=== PATIENT | female | born 1940 | race Caucasian/White ===

== ENCOUNTER 2018-11-07 11:09 | Inpatient (IN) | payer MEDICARE ==
[~2018-11-07] VITALS: Ht 157.5 cm; Wt 105.0 kg
--- NOTE | 2018-11-07 12:01 | NUR ---
pt to ed for productive cough x1 week. accompanied by concerned son and dtr. connected to all monitors. vss. call light Conmio reach. pt tamera from [facility] at this time. report to [facility].
--- NOTE | 2018-11-07 12:18 | NUR ---
ASSUMED CARE OF PT AT THIS TIME FROM PAM RODRÍGUEZ. RECEIVED REPORT. KAMI PRATHER AT BEDSIDE FOR EVALUATION. PT REPORTS "I'M HAVING TO USE MY HOME OXYGEN, 2L, ALL THE TIME AND USUALLY I DON'T HAVE TO USE IT THIS MUCH, BUT I DO USE 2L." VSS. ALL MONITORS ON. DENIES CP AND ANY PAIN OR NEED TO USE RESTROOM. CALL LIGHT IN REACH. FALL PRECAUTIONS IN PLACE. AWAITING RESULTS.
--- NOTE | 2018-11-07 12:21 | NUR ---
PT UNABLE TO RECALL HOME MEDICATIONS, "I TAKE A LOT OF THINGS BUT I DON'T KNOW WHAT THEY ARE." FAMILY UNABLE TO ASSIST WITH MEDICATION LIST EITHER, KAMI PRATHER AT BEDSIDE, AWARE UNABLE TO OBTAIN HOME MEDICATION LIST.
[2018-11-07 12:35] LABS: BASOPHILS # (AUTO) 0.07 x10^3/uL (0-0.1); BASOPHILS % (AUTO) 1 % (0-1); EOSINOPHILS # (AUTO) 0.35 x10^3/uL (0-0.4); EOSINOPHILS % (AUTO) 4 % (1-7); LYMPHOCYTES # (AUTO) 1.41 x10^3/uL (1-3.4); LYMPHOCYTES % (AUTO) 15 % (22-44); MD NO; MEAN CORPUSCULAR HEMOGLOBIN 30.1 pg (27.0-34.8); MEAN CORPUSCULAR HGB CONC 33.3 g/dL (32.4-35.8); MEAN CORPUSCULAR VOLUME 90.4 fL (80-100); MEAN PLATELET VOLUME 7.5 fL (7.4-10.4); MONOCYTES # (AUTO) 0.69 x10^3/uL (0.2-0.8); MONOCYTES % (AUTO) 7 % (2-9); NEUTROPHILS % (AUTO) 74 % (42-75); PLATELET COUNT 317 x10^3/uL (130-400); RED BLOOD COUNT 4.66 x10^6/uL (3.82-5.3); RED CELL DISTRIBUTION WIDTH 14.5 % (9.6-15.2)
[2018-11-07 12:42] LABS: ALBUMIN 2.9 g/dL (3.4-5.0); ANION GAP 5 mmol/L (5-15); CALCIUM 8.7 mg/dL (8.5-10.1); CHLORIDE 108 mmol/L (98-107); CREATININE 1.14 mg/dL (0.55-1.02)
[2018-11-07 12:46] LABS: TROPONIN I < 0.015 ng/mL (0.000-0.045)
--- NOTE | 2018-11-07 13:02 | NUR ---
PT UP FOR RECHECK
--- NOTE | 2018-11-07 13:10 | NUR ---
PT RESTING IN POSITION OF COMFORT, DOZING INTERMITTENTLY, VSS. RESP REGULAR, EVEN, UNLABORED. PULSE OX 97% 2L NC O2. DENIES ANY PAIN, CP, NEED TO USE RESTROOM. CALL LIGHT IN REACH. FALL PRECAUTIONS IN PLACE. AWAITING RECHECK FROM ERP
--- NOTE | 2018-11-07 13:47 | NUR ---
DR. SAUCEDA AT BEDSIDE FOR EVALUATION, PT AWAITING CT.
--- NOTE | 2018-11-07 14:24 | NUR ---
PT AMBULATED IN HALLS WITH INFORMATION AND REFERRAL DIRECTOR AND OXYGEN TO TEST PT O2 WITH AMBULATION. PT PULSE OX REMAINED AT 97% ON 3L NC O2, HR RATE 90-110. PT REPORTED "FEELING TIRED" AFTER APPROXIMATELY 15 FT OF AMBULATION IN [place]. DISCUSSED WITH DR. SAUCEDA, AWARE. PT BACK TO BED, RESTING IN POSITION OF COMFORT. DENIES NEED TO USE RESTROOM, AWARE UA SAMPLE NEEDED. DISCUSSED UA WITH DR. SAUCEDA, AWARE PT DENIES URGE AT THIS TIME. TO RECHECK PT. CALL LIGHT IN REACH. VSS. FAMILY AT BEDSIDE. FALL PRECAUTIONS IN PLACE.
--- NOTE | 2018-11-07 14:39 | NUR ---
PT AMBULATED TO RESTROOM WITH O2 WITH SLOW BUT STEADY GAIT. MILD WORK OF BREATHING WITH AMBULATION. RESTING BACK ON GURNEY IN POSITION OF COMFORT. RESP REGULAR, EVEN, UNLABORED. PULSE OX 97% 2L NC WHILE RESTING. CALL LIGHT IN REACH. VSS. DR. SAUCEDA AT BEDSIDE FOR RECHECK. DISCUSSING POC, TO BE ADMITTED TO HOSPITAL, PT AND FAMILY AGREE TO POC.
--- NOTE | 2018-11-07 14:55 | NUR ---
PT REQUESTING PAIN MEDICATION, ADMITTING PROVIDER AT BEDSIDE FOR EVALUATION, AWAITING ORDERS.
[2018-11-07 14:57] LABS: MICROSCOPIC NOT IND
[2018-11-07] MEDS ORDERED: ONDANSETRON 2MG/ML, 2ML IVPush PRN (15:00)
[2018-11-07] MEDS ORDERED: ONDANSETRON ODT 4 MG PO PRN (15:00)
[2018-11-07 15:04] LABS: CULTURE INDICATED? NO
--- NOTE | 2018-11-07 15:05 | NUR ---
YONI RN AT BEDSIDE FOR IV START FOR ADMISSION TO HOSPITAL
--- NOTE | 2018-11-07 15:20 | NUR ---
REPORT AND CARE TO BREAK MARCOS BROOKS
--- NOTE | 2018-11-07 15:40 | NUR ---
REPORT BACK FROM BREAK RN. CARE ASSUMED. TO MEDICATE PT FOR PAIN. PT AMBULATED TO RESTROOM WITH STEADY GAIT WITH O2 AT THIS TIME. VSS. CALL LIGHT IN REACH. FALL PRECAUTIONS IN PLACE. RESTING IN POSITION OF COMFORT. AWAITING ROOM ON FLOOR.
[2018-11-07 15:48] LABS: TROPONIN I < 0.015 ng/mL (0.000-0.045)
[2018-11-07] MEDS ORDERED: ACETAMINOPHEN 325 MG TABLET ONE (16:01)
[2018-11-07] MEDS ORDERED: HEPARIN 5,000 UNITS/ML, 1ML ONE (16:01)
[2018-11-07] MEDS: ACETAMINOPHEN 325 MG TABLET PO PRN ×2 (16:07→22:49)
[2018-11-07] MEDS: SODIUM CHLORIDE 0.9% 1,000 ML IV SCH (16:08)
[2018-11-07] MEDS: HEPARIN 5,000 UNITS/ML, 1ML SQ SCH (16:10)
--- NOTE | 2018-11-07 16:12 | NUR ---
PT MEDICATED NOTED PER ORDER FOR 06/29 CHRONIC BACK PAIN. CONTINUE AWAITING ROOM ON FLOOR. AMBULATED TO RESTROOM WITH STEADY GAIT WITH O2, RESTING BACK IN POSITION OF COMFORT. WATCHING TV. CALL LIGHT IN REACH. FALL PRECAUTIONS IN PLACE. REMAINS A&OX4.
[2018-11-07] MEDS: INSULIN LISPRO 100 UNITS/ML, PEN SQ-INSULIN SCH ×2 (16:55→21:00)
--- NOTE | 2018-11-07 16:56 | NUR ---
FSBS CHECKED PER ORDER, RESULT 106, NO INSULIN ADMINISTERED PER SLIDING SCALE ORDERS. PT RESTING COMFORTABLY. MEDTELE HOLD AT THIS TIME, NO ROOM AVAILABLE ON FLOOR. WATCHING TV. VSS. DENIES NEED TO USE RESTROOM.
--- NOTE | 2018-11-07 16:59 | NUR ---
RT AT BEDSIDE FOR EVALUATION
[2018-11-07] MEDS ORDERED: ALBUTEROL/IPRATROPIUM 2.5MG/0.5MG, 3 ML ONE (17:06)
--- NOTE | 2018-11-07 17:14 | NUR ---
RT REMAINS AT BEDSIDE. VSS. REMAINS SR ON MONITOR. CALL LIGHT IN REACH. DENIES NEED TO USE RESTROOM.
[2018-11-07] MEDS: ALBUTEROL/IPRATROPIUM 2.5MG/0.5MG, 3 ML NPPB SCH ×2 (17:20→23:20)
--- NOTE | 2018-11-07 17:58 | NUR ---
BEDSIDE REPORT AND CARE TO JOSÉ MIGUEL RODRÍGUEZ AT THIS TIME.
--- NOTE | 2018-11-07 18:10 | NUR ---
BEDSIDE REPORT RECEIVED FROM MARCOS ASCENCIO. PT SITTING UP IN [facility] NOTED. PT FINISHED 100% OF MEAL TRAY AND DENIES FURTHER NEEDS/PAIN MANAGEMENT. BP/SPO2/ECG MONITORING IN PLACE. SPO2 >90% W/3L O2 BY NC. NSR ON MONITOR. PT SPEAKING IN FULL SENTENCES WO DIFFICULTY. NO RESPIRATORY DISTRESS NOTED.
--- NOTE | 2018-11-07 19:15 | NUR ---
PT AMBULATED USING OWN CANE TO RESTROOM. PT ON 3L BY [place] FOR ACTIVITY. PT REPORTS BACK PAIN, DENIES CP/SOB/INCREASED WOB WITH ACTIVITY. PT REMAINS TALKATIVE THROUGHOUT. SPO2 UPON RETURN TO ROOM >90%. PT PLACED ON 2L BY NJ WHILE RESTING IN BED. CONTINUE TO AWAIT ROOM ASSIGNMENT.
--- NOTE | 2018-11-07 19:34 | NUR ---
REPORT TO MARCOS UMANZOR. PT PREPARED FOR TRANSPORT
[2018-11-07 20:11] VITALS: BP 119/79
[2018-11-07] MEDS ORDERED: ATORVASTATIN 40 MG TABLET PO SCH (21:00)
[2018-11-07] MEDS: BUDESONIDE 0.5 MG/2 ML INHA NPPB SCH (21:00)
[2018-11-07 21:11] LABS: TROPONIN I < 0.015 ng/mL (0.000-0.045)
[2018-11-07] MEDS: IBUPROFEN 200 MG TABLET PO PRN (22:30)
[2018-11-08 00:24] VITALS: BP 109/69
[2018-11-08] MEDS ORDERED: IBUPROFEN 200 MG TABLET ONE (00:33)
[2018-11-08] MEDS: IBUPROFEN 200 MG TABLET PO PRN (00:35)
[2018-11-08] MEDS: ACETAMINOPHEN 325 MG TABLET PO PRN ×2 (04:41→09:56)
[2018-11-08 05:07] LABS: BASOPHILS # (AUTO) 0.12 x10^3/uL (0-0.1); BASOPHILS % (AUTO) 1 % (0-1); EOSINOPHILS # (AUTO) 0.42 x10^3/uL (0-0.4); EOSINOPHILS % (AUTO) 5 % (1-7); LYMPHOCYTES # (AUTO) 2.02 x10^3/uL (1-3.4); LYMPHOCYTES % (AUTO) 22 % (22-44); MD NO; MEAN CORPUSCULAR HEMOGLOBIN 29.9 pg (27.0-34.8); MEAN CORPUSCULAR HGB CONC 32.8 g/dL (32.4-35.8); MEAN CORPUSCULAR VOLUME 91.2 fL (80-100); MEAN PLATELET VOLUME 7.7 fL (7.4-10.4); MONOCYTES # (AUTO) 0.87 x10^3/uL (0.2-0.8); MONOCYTES % (AUTO) 9 % (2-9); NEUTROPHILS # (AUTO) 5.89 x10^3/uL (1.8-6.8); NEUTROPHILS % (AUTO) 63 % (42-75); PLATELET COUNT 280 x10^3/uL (130-400); RED BLOOD COUNT 4.43 x10^6/uL (3.82-5.3); RED CELL DISTRIBUTION WIDTH 14.6 % (9.6-15.2)
[2018-11-08 05:09] LABS: ANION GAP 6 mmol/L (5-15); CALCIUM 8.7 mg/dL (8.5-10.1); CHLORIDE 107 mmol/L (98-107); CREATININE 1.35 mg/dL (0.55-1.02)
[2018-11-08 05:32] LABS: HEMOGLOBIN A1C 6.2 % (4.2-6.3)
[2018-11-08] MEDS ORDERED: ASPIRIN 81 MG TABLET EC PO SCH (06:00)
[2018-11-08] MEDS: INSULIN LISPRO 100 UNITS/ML, PEN SQ-INSULIN SCH ×3 (07:00→16:11)
[2018-11-08 07:09] VITALS: BP 130/67
[2018-11-08] MEDS: BUDESONIDE 0.5 MG/2 ML INHA NPPB SCH (07:25)
[2018-11-08] MEDS: ALBUTEROL/IPRATROPIUM 2.5MG/0.5MG, 3 ML NPPB SCH ×3 (07:25→14:18)
[2018-11-08] MEDS ORDERED: SENNA/DOCUSATE TABLET PO SCH (09:00)
[2018-11-08] MEDS: HEPARIN 5,000 UNITS/ML, 1ML SQ SCH ×3 (09:37→15:58)
[2018-11-08] MEDS: SODIUM CHLORIDE 0.9% 1,000 ML IV SCH (09:39)
[2018-11-08] MEDS ORDERED: ATOR40TA78 PO (09:48)
[2018-11-08] MEDS ORDERED: ASPI81TA45 PO (09:48)
[2018-11-08 13:07] VITALS: BP 137/76
== END 2018-11-08 17:59 | disposition home health service (06) | DRG 189 ==
LOC: ED 12:12 → EDIP 14:54 → 4WST 19:49
PROVIDERS: ADMIT Internal Medicine; ATTEND Internal Medicine
DX: J96.00 Acute respiratory failure, unspecified whether with hypoxia or hypercapnia (principal); J98.11 Atelectasis; N17.9 Acute kidney failure, unspecified; Z68.41 Body mass index [BMI] 40.0-44.9, adult; Z88.2 Allergy status to sulfonamides; Z88.8 Allergy status to other drugs, medicaments and biological substances; E03.9 Hypothyroidism, unspecified; E11.40 Type 2 diabetes mellitus with diabetic neuropathy, unspecified; E66.01 Morbid (severe) obesity due to excess calories; E78.5 Hyperlipidemia, unspecified; G47.30 Sleep apnea, unspecified; G89.29 Other chronic pain; M54.9 Dorsalgia, unspecified; I10 Essential (primary) hypertension; I48.91 Unspecified atrial fibrillation; J84.10 Pulmonary fibrosis, unspecified; Z82.3 Family history of stroke; Z83.3 Family history of diabetes mellitus; Z86.73 Personal history of transient ischemic attack (TIA), and cerebral infarction without residual deficits; Z90.710 Acquired absence of both cervix and uterus; Z99.81 Dependence on supplemental oxygen; R07.89 Other chest pain; Z90.49 Acquired absence of other specified parts of digestive tract
CPT/HCPCS: 36415; 36600; 70450; 71046; 80048; 81003; 82040; 82803; 82962; 83036; 83690; 83880; 84484; 85025; 93005; 94640; G0378; J1644; J7620; J7626; Q0162; J1815; J7030